=== PATIENT | female | born 1945 | race Caucasian/White ===

== ENCOUNTER 2018-03-08 16:19 | Inpatient (IN) | payer MEDICARE, MEDICAID ==
[~2018-03-08] VITALS: Ht 175.3 cm; Wt 40.0 kg
[~2018-03-08 16:19] MED LIST: ALEN5TAB PO; AREDS-2; ASPI1TAB57 PO; CALC600T10 PO; IPRAAER INH; LISI20TA PO; METO25TA3 PO; MULT1TAB84 PO; POTA10CA PO; PRAV40TA2 PO; REME15TA PO
[2018-03-08 16:24] VITALS: BP 143/76; PULSE 89; RESP 20; TEMP 97.4; O2SAT 96
[2018-03-08] MEDS ORDERED: SODIUM CHLOR 0.9% 1000 ML INJ 1,000 ML IV ONE ×2 (16:39→18:15)
[2018-03-08 16:43] VITALS: BP 143/76; PULSE 82; RESP 15; O2SAT 96
[2018-03-08] MEDS ORDERED: SODIUM CHLORIDE 0.9% FLUSH 10 ML FLUSH IVF PRN (16:45)
--- NOTE | 2018-03-08 17:00 | RADRPT ---
EXAM DATE: 03/08/2018 4:52 PM EDT AGE/SEX: 72 years / Female INDICATIONS: Weakness and fall today. CLINICAL DATA: This is the patient's initial encounter. Patient reports that signs and symptoms have been present for 1 day and indicates a pain score of 0/10. MEDICAL/SURGICAL HISTORY: Chronic obstructive pulmonary disease. Hypertension. Pacemaker. COMPARISON: [facility] – [place], CHEST SINGLE AP, 06/18/2016. . FINDINGS: A single AP view of the chest demonstrates the lungs to be symmetrically hyperaerated without evidenc e of mass, infiltrate or effusion. No evidence of pneumothorax. The cardiomediastinal contours are u nremarkable. Healed fractures of the posterior lateral right fifth through seventh ribs, stable from prior.. Bipolar cardiac pacer leads intact. CONCLUSION: Hyperaerated lungs. No infiltrates seen. Electronically signed by: Wilman Bravo MD 03/08/2018 4:58 PM EDT
--- NOTE | 2018-03-08 17:28 | PD ---
HPI Chief Complaint: Fall Time Seen by Provider: 16:39 Travel History International Travel<30 days: No Contact w/Intl Traveler<30days: No Traveled to known affect area: No History of Present Illness HPI 72-year-old female patient with history of COPD, smoking, presents to the ER today because she has been slowly losing weight over the last few months, has lost about 33 pounds, and she does have poor appetite, and today was feeling dizzy, had fallen yesterday because she just feels so weak. She has a left eyelid ecchymosis from the fall. She has abrasions on her left shoulder. She denies any vomiting, diarrhea, or other symptoms. She also complains of back pains which have been going on for several weeks. Modifying Factors: None Associated Signs & Symptoms: Weight loss, decreased p.o. intake, anorexia, general weakness, falls Risk Factors: Elderly PFSH Past Medical History Autoimmune Disease: No Anxiety: Yes Depression: Yes Cancer: No COPD: Yes Endocrine: No Genitourinary: No Hypertension: Yes Musculoskeletal: Yes Neurologic: No Reproductive: No ?: Not Tubal Ligation: Yes Past Surgical History Surgical History: No Previous Surgery Eye Surgery: Yes (CATARACT) Pacemaker: Yes Social History Alcohol Use: Yes (scotch daily, 1-2 glasses) Tobacco Use: Yes (1ppd) Substance Use: No Allergies-Medications (Allergen,Severity, Reaction): Coded Allergies: No Known Allergies (Verified Adverse Reaction, Unknown, 03/08/18) Reported Meds & Prescriptions Reported Meds & Active Scripts Active Potassium Chloride ER (Potassium Chloride) 10 Meq Cap 20 Meq PO DAILY Alendronate (Alendronate Sodium) 5 Mg Tab 5 Mg PO DAILY Lisinopril-Hctz 20-12.5 Mg Tab 1 Tab PO DAILY Metoprolol Tartrate 25 Mg Tab 25 Mg PO BID Remeron (Mirtazapine) 15 Mg Tab 15 Mg PO HS Pravastatin 40 Mg Tab 40 Mg PO DAILY Combivent Respimat Inh (Ipratropium-Albuterol Inh) 20-100 Snf/Act Aero 1 Puff INH QID Aspirin 81 (Aspirin) 81 Mg Tabdr 81 Mg PO DAILY Multivitamin Adults (Multiple Vitamins W/ Minerals) 1 Tab 1 Tab PO DAILY Calcium + D3 (Calcium Carbonate-Cholecalciferol) 600-200 Mg-Unit Tab 1 Tab PO BID Reported [Areds-2] Review of Systems Except as stated in HPI: all other systems reviewed are Neg Physical Exam Narrative GENERAL: Cachectic appearing elderly white female patient currently in moderate distress. Awake and oriented 3. SKIN: Focused skin assessment warm/dry. HEAD: Atraumatic. Normocephalic. EYES: Pupils equal and round. No scleral icterus. No injection or drainage. ENT: No nasal bleeding or discharge. Mucous membranes pink and moist. NECK: Trachea midline. No JVD. Supple. CARDIOVASCULAR: Regular rate and rhythm. No murmur appreciated. RESPIRATORY: No accessory muscle use. Clear to auscultation. Breath sounds equal bilaterally. GASTROINTESTINAL: Abdomen scaphoid, non-tender, nondistended. Hepatic and splenic margins not palpable. BACK: No CVA tenderness. No rash. No point tenderness on palpation of the spine. MUSCULOSKELETAL: No obvious deformities. No clubbing. No cyanosis. No edema. Abrasion to the left anterior shoulder. With no obvious bony deformities, nontender with range of motion or palpation. NEUROLOGICAL: Awake and alert. No obvious cranial nerve deficits. Motor grossly within normal limits. Normal speech. PSYCHIATRIC: Appropriate mood and affect; insight and judgment normal. Data Data Last Documented VS Vital Signs Date Time Temp Pulse Resp B/P (MAP) Pulse Ox O2 Delivery O2 Flow Rate FiO2 03/08/18 16:43 82 15 143/76 (98) 96 Room Air 03/08/18 16:24 97.4 Orders Orders Electrocardiogram (03/08/18 16:39) Complete Blood Count With Diff (03/08/18 16:39) Comprehensive Metabolic Panel (03/08/18 16:39) Magnesium (Mg) (03/08/18 16:39) Ckmb (Isoenzyme) Profile (03/08/18 16:39) Troponin I (03/08/18 16:39) Act Partial Throm Time (Ptt) (03/08/18 16:39) Prothrombin Time / Inr (Pt) (03/08/18 16:39) Urinalysis - C+S If Indicated (03/08/18 16:39) Chest, Single Ap (03/08/18 16:39) Ct Brain W/O Iv Contrast(Rout) (03/08/18 16:39) Ecg Monitoring (03/08/18 16:39) Iv Access Insert/Monitor (03/08/18 16:39) Oximetry (03/08/18 16:39) Sodium Chloride 0.9% Flush (Ns Flush) (03/08/18 16:45) Sodium Chlor 0.9% 1000 Ml Inj (Ns 1000 M (03/08/18 16:39) Ct Abd/Pel W/O Iv Contrast (03/08/18 16:39) CKMB (03/08/18 16:30) CKMB% (03/08/18 16:30) Sodium Chlor 0.9% 1000 Ml Inj (Ns 1000 M (03/08/18 18:15) Labs Laboratory Tests Test 03/08/18 16:30 White Blood Count 8.3 TH/MM3 Red Blood Count 5.70 MIL/MM3 Hemoglobin 16.9 GM/DL Hematocrit 50.0 % Mean Corpuscular Volume 87.7 FL Mean Corpuscular Hemoglobin 29.6 PG Mean Corpuscular Hemoglobin Concent 33.8 % Red Cell Distribution Width 13.8 % Platelet Count 147 TH/MM3 Mean Platelet Volume 9.5 FL Neutrophils (%) (Auto) 77.7 % Lymphocytes (%) (Auto) 13.6 % Monocytes (%) (Auto) 7.7 % Eosinophils (%) (Auto) 0.6 % Basophils (%) (Auto) 0.4 % Neutrophils # (Auto) 6.4 TH/MM3 Lymphocytes # (Auto) 1.1 TH/MM3 Monocytes # (Auto) 0.6 TH/MM3 Eosinophils # (Auto) 0.1 TH/MM3 Basophils # (Auto) 0.0 TH/MM3 CBC Comment DIFF FINAL Differential Comment Prothrombin Time 10.9 SEC Prothromb Time International Ratio 1.1 RATIO Activated Partial Thromboplast Time 21.5 SEC Blood Urea Nitrogen 56 MG/DL Creatinine 1.39 MG/DL Random Glucose 130 MG/DL Total Protein 7.7 GM/DL Albumin 4.1 GM/DL Calcium Level 15.9 MG/DL Magnesium Level 1.6 MG/DL Alkaline Phosphatase 63 U/L Aspartate Amino Transf (AST/SGOT) 64 U/L Alanine Aminotransferase (ALT/SGPT) 25 U/L Total Bilirubin 0.5 MG/DL Sodium Level 134 MEQ/L Potassium Level 3.3 MEQ/L Chloride Level 93 MEQ/L Carbon Dioxide Level 32.6 MEQ/L Anion Gap 8 MEQ/L Estimat Glomerular Filtration Rate 37 ML/MIN Protein Corrected Calcium 15.4 MG/DL Total Creatine Kinase 172 U/L Troponin I 0.16 NG/ML [facility] Medical Decision Making Medical Screen Exam Complete: Yes Emergency Medical Condition: Yes Medical Record Reviewed: Yes Interpretation(s) EKG shows paced rhythm at a rate of 87 bpm. Laboratory Tests Test 03/08/18 16:30 Red Blood Count 5.70 MIL/MM3 (4.00-5.30) Hemoglobin 16.9 GM/DL (11.6-15.3) Hematocrit 50.0 % (35.0-46.0) Platelet Count 147 TH/MM3 (150-450) Neutrophils (%) (Auto) 77.7 % (16.0-70.0) Activated Partial Thromboplast Time 21.5 SEC (24.3-30.1) Blood Urea Nitrogen 56 MG/DL (7-18) Creatinine 1.39 MG/DL (0.50-1.00) Random Glucose 130 MG/DL (74-106) Calcium Level 15.9 MG/DL (8.5-10.1) Aspartate Amino Transf (AST/SGOT) 64 U/L (15-37) Sodium Level 134 MEQ/L (136-145) Potassium Level 3.3 MEQ/L (3.5-5.1) Chloride Level 93 MEQ/L (98-107) Carbon Dioxide Level 32.6 MEQ/L (21.0-32.0) Estimat Glomerular Filtration Rate 37 ML/MIN (>89) Protein Corrected Calcium 15.4 MG/DL (8.5-10.1) Creatine Kinase MB 5.3 NG/ML (0.5-3.6) Troponin I 0.16 NG/ML (0.02-0.05) Last [address] 03/08/181638 Signed Impressions: CONCLUSION: 1. Moderate severity ischemic change in the supratentorial brain, unchanged fr om 2016. 2. No acute findings. Chest X-Ray 03/08/181638 Signed Impressions: CONCLUSION: Hyperaerated lungs. No infiltrates seen. Abdomen/Pelvis CT 03/08/181638 Signed Impressions: CONCLUSION: 1. Stable abdominal aortic aneurysm. Stable colonic diverticulosis and gallsto carmen. 2. 2 mm nonobstructing stone in the extrarenal pelvis on the right side. Other zarco, no acute findings.. Differential Diagnosis Dehydration versus electrolyte abnormalities versus intracranial injuries Narrative Course Lab work shows hypercalcemia and severe elevation of BUN and creatinine concerning for dehydration and acute kidney injury. IV fluids have been given in the ER. CAT scan of the brain did not show any signs of intracranial injuries. CT of the abdomen did not show signs of acute intra-abdominal processes. At this point, my plan would be to admit her for further evaluation. Patient also has mildly elevated troponin, will need troponins followed, but this is likely secondary to dehydration and kidney failure rather than cardiac processes. Case has been discussed with Dr. Pike for admission. Diagnosis Primary Impression: Hypercalcemia Additional Impressions: Severe dehydration Acute kidney failure Admitting Information Admitting Physician Requests: Admit Jordan Hyatt MD Mar 08, 2018 17:28
[2018-03-08 17:31] LABS: AUTOMATED NEUTROPHIL # 6.4 TH/MM3 (1.8-7.7); BASOPHIL % 0.4 % (0.0-2.0); EOSINOPHIL # 0.1 TH/MM3 (0-0.4); EOSINOPHIL % 0.6 % (0.0-4.0); HEMOGLOBIN 16.9 GM/DL (11.6-15.3); LYMPH % 13.6 % (9.0-44.0); LYMPHOCYTE # 1.1 TH/MM3 (1.0-4.8); MEAN CELL VOLUME 87.7 FL (80.0-100.0); MEAN CORPUSCULAR HEMOGLOBIN 29.6 PG (27.0-34.0); MEAN CORPUSCULAR HGB CONC 33.8 % (32.0-36.0); MEAN PLATELET VOLUME 9.5 FL (7.0-11.0); MONO % 7.7 % (0.0-8.0); MONOCYTE # 0.6 TH/MM3 (0-0.9); NEUT % 77.7 % (16.0-70.0); PLATELET COUNT 147 TH/MM3 (150-450); RED CELL DISTRIBUTION WIDTH 13.8 % (11.6-17.2); WHITE BLOOD COUNT 8.3 TH/MM3 (4.0-11.0)
--- NOTE | 2018-03-08 17:43 | RADRPT ---
EXAM DATE: 03/08/2018 5:40 PM EDT AGE/SEX: 72 years / Female INDICATIONS: Dizziness and generalized weakness X 2 weeks. CLINICAL DATA: This is the patient's initial encounter. Patient reports that signs and symptoms have been present for 2 weeks and indicates a pain score of 0/10. MEDICAL/SURGICAL HISTORY: Hypertension. Tubal ligation. RADIATION DOSE: 56.35 CTDI (mGy) [place] [facility] [place]13[place]. . TECHNIQUE: CT of the head without contrast. Using automated exposure control and adjustment of the mA and/or kV according to patient size, radiation dose was kept as low as reasonably achievable to ob tain optimal diagnostic quality images. FINDINGS: The head is canted in the gantry creating asymmetries. Cerebrum: The ventricles, sulci, and basal cisterns are prominent. There is also diffuse decreased a ttenuation in the supratentorial white matter characteristic of diffuse ischemic change. The findings are similar in severity and appearance compared to prior examination in 2016. Physiologic calcificat ion in the right basal ganglia.. No evidence of midline shift, mass lesion, hemorrhage or acute infa rction. No extraaxial fluid collections are seen. Posterior Fossa: The cerebellum and brainstem are intact. The 4th ventricle is midline. The cerebe llopontine angle is unremarkable. Extracranial: The visualized portion of the orbits is intact. Skull: The calvaria is intact. No evidence of skull fracture. CONCLUSION: 1. Moderate severity ischemic change in the supratentorial brain, unchanged from 2016. 2. No acute findings. Electronically signed by: Wilman Bravo MD 03/08/2018 5:42 PM EDT
[2018-03-08 17:48] LABS: INTERNATIONAL NORMALIZED RATIO 1.1 RATIO; PROTHROMBIN TIME - PATIENT 10.9 SEC (9.8-11.6)
--- NOTE | 2018-03-08 17:55 | RADRPT ---
EXAM DATE: 03/08/2018 5:42 PM EDT AGE/SEX: 72 years / Female INDICATIONS: Generalized weakness and loss of appetite. CLINICAL DATA: This is the patient's initial encounter. Patient reports that signs and symptoms have been present for 2 weeks and indicates a pain score of 0/10. MEDICAL/SURGICAL HISTORY: Hypertension. Tubal ligation. RADIATION DOSE: 6.91 CTDI (mGy) COMPARISON: [facility] [place] & [place]EL[place] W/O CONTRAST, 06/17/2016. . TECHNIQUE: Multiple contiguous axial images were obtained through the abdomen. Images were obtained using multiple row detector helical technique. Using dose reduction techniques, radiation dose was ke pt as low as reasonably achievable to obtain optimal diagnostic quality images. FINDINGS: Lower Lungs: The visualized lower lungs are clear. Liver: The liver has a homogeneous density without space-occupying lesion. There is no dilation of th e biliary tree. Multiple calcified stones layering in the dependent gallbladder similar to prior. Spleen: Homogeneous density without enlargement. Pancreas: Unremarkable without mass or calcification. Kidneys: Normal in size and shape. No evidence of mass or hydronephrosis. There is a new 2 mm nonobs tructing calcified stone in the extrarenal pelvis on the right side. Adrenal Glands: Unremarkable. Aorta: Fusiform aneurysm of the midabdominal aorta is stable in size at 4.0 cm in width and 4.4 cm in AP dimension. Diffuse wall calcification are present throughout the aorta and iliac vessels. Bowel/Mesentery: No dilated loops of small or large bowel. Scattered diverticula throughout the colo n, similar to prior. Abdominal Wall: Intact. Retroperitoneum: No evidence of adenopathy in the retrocrural, para-aortic, or deep pelvic regions. Bladder: Contours are smooth. Reproductive Organs: No abnormal masses or calcifications seen. Inguinal: The inguinal region is unremarkable without evidence of adenopathy. Bony Structures: Unremarkable. CONCLUSION: 1. Stable abdominal aortic aneurysm. Stable colonic diverticulosis and gallstones. 2. 2 mm nonobstructing stone in the extrarenal pelvis on the right side. Otherwise, no acute finding s.. Electronically signed by: Wilman Bravo MD 03/08/2018 5:54 PM EDT
[2018-03-08 18:09] LABS: ALBUMIN 4.1 GM/DL (3.4-5.0); ALKALINE PHOSPHATASE 63 U/L (45-117); ALT (GPT) 25 U/L (10-53); AST (GOT) 64 U/L (15-37); BICARBONATE 32.6 MEQ/L (21.0-32.0); BLOOD UREA NITROGEN 56 MG/DL (7-18); CALCIUM 15.9 MG/DL (8.5-10.1); CHLORIDE 93 MEQ/L (98-107); CREATININE 1.39 MG/DL (0.50-1.00); GLOMERULAR FILTRATION RATE 37 ML/MIN (>89); GLUCOSE,RANDOM 130 MG/DL (74-106); MAGNESIUM 1.6 MG/DL (1.5-2.5); SODIUM (NA) 134 MEQ/L (136-145); TOTAL BILIRUBIN ADULT 0.5 MG/DL (0.2-1.0); TOTAL PROTEIN 7.7 GM/DL (6.4-8.2); TROPONIN I 0.16 NG/ML (0.02-0.05)
[2018-03-08 18:15] LABS: CALCIUM-PROTEIN CORRECTED 15.4 MG/DL (8.5-10.1)
[2018-03-08 18:42] VITALS: O2SAT 97
[2018-03-08] MEDS ORDERED: SENNOSIDES 8.6 MG TAB PO PRN (18:45)
[2018-03-08] MEDS ORDERED: LACTULOSE SYRUP 20 GM/30 ML CUP PO PRN (18:45)
[2018-03-08] MEDS ORDERED: LORazepam 2 MG TAB PO PRN (18:45)
[2018-03-08] MEDS ORDERED: MAGNESIUM HYDROXIDE SUSP 30 ML CUP PO PRN (18:45)
[2018-03-08] MEDS ORDERED: ONDANSETRON ODT 4 MG TAB PO PRN (18:45)
[2018-03-08] MEDS ORDERED: NALOXONE HCL 0.4 MG/ML AMP IV PUSH PRN (18:45)
[2018-03-08] MEDS ORDERED: LORazepam 1 MG TAB PO PRN (18:45)
[2018-03-08] MEDS ORDERED: BISACODYL 10 MG SUPP RECTAL PRN (18:45)
[2018-03-08] MEDS ORDERED: ACETAMINOPHEN 325 MG TAB PO PRN (18:45)
[2018-03-08] MEDS ORDERED: FLUMAZENIL 0.5 MG/5 ML VIAL IV PUSH PRN (18:45)
[2018-03-08] MEDS ORDERED: LORazepam 2 MG/ML VIAL IV PUSH PRN ×4 (18:45)
[2018-03-08] MEDS ORDERED: RESP: ALBUTEROL 2.5 MG/IPRATROPIUM 0.5 MG NEB (PRN) NEB (19:00)
[2018-03-08] MEDS ORDERED: cloNIDine HCL 0.1 MG TAB PO PRN (19:00)
[2018-03-08 19:05] VITALS: BP 164/71; PULSE 78; RESP 18; O2SAT 97
[2018-03-08] MEDS ORDERED: NON-FORMULARY DRUG (Ipratropium-Albuterol Inh (Combivent Respimat Inh) 1 PUFF) INH SCH (21:00)
[2018-03-08] MEDS: NS + KCL 20 MEQ INJ 1,000 ML IV SCH (21:17)
[2018-03-08 21:34] VITALS: PULSE 82
[2018-03-08] MEDS: DOCUSATE SODIUM 50 MG/SENNA 8.6 MG TAB PO SCH (21:35)
[2018-03-08] MEDS: METOPROLOL TARTRATE 25 MG TAB PO SCH (21:36)
[2018-03-08] MEDS: HEPARIN SODIUM - SQ 10,000 UNITS/ML VIAL SQ SCH (21:36)
[2018-03-08] MEDS: ALBUTEROL SULFATE 90 MCG/ACT HFA 8 GM INHALER INH SCH (21:39)
[2018-03-08 21:40] VITALS: BP 162/72; PULSE 84; RESP 17; TEMP 98; O2SAT 97
[2018-03-08] MEDS ORDERED: CALCITONIN SALMON INJ 400 UNITS/2 ML VIAL SQ ONE (22:00)
[2018-03-08] MEDS ORDERED: ACETAMINOPHEN/HYDROcodone 325 MG/5 MG TAB PO PRN (22:15)
[2018-03-08] MEDS ORDERED: ACETAMINOPHEN 500 MG CPLT PO PRN (22:15)
--- NOTE | 2018-03-08 22:58 | HHI.HP ---
[facility] Marcel Smith MD Admission Diagnosis Severe dehydration/hypercalcemia/syncope Diagnoses: Chief Complaint: "I fell" Travel History International Travel<30 Days: No Contact w/Intl Traveler <30 Da: No Traveled to Known Affected Are: No History of Present Illness This is a 72-year-old female patient with past medical history which includes COPD not on oxygen nebulizers or inhalers, chronic tobacco use, anxiety/ depression and hypertension. Patient presented to the emergency department today after a fall. Patient reports she was walking her hallway and tripped and fell over her rug. Patient does have ecchymosis on her left eye and reports left shoulder pain. Patient also endorses poor appetite over the past 1 -2 years and weight loss. Patient reports she has lost approximately 90 pounds over the past 2 years and lost approximately 33 pounds over the past 3 months. Patient reports she just has a poor appetite and does not want to eat much. Patient does report she has approximately 2 glasses of bourbon and coke per day and smokes 1-2 packs of cigarettes per day patient denies nausea vomiting diarrhea constipation fevers chills cough congestion chest pain or shortness of breath. Review of Systems Except as stated in HPI: all other systems reviewed are Neg Past Family Social History Past Medical History COPD not on oxygen nebulizers or inhalers, chronic tobacco use, anxiety/ depression and hypertension Past Surgical History Bilateral cataract surgery, pacemaker placement, tubal ligation Reported Medications Potassium Chloride ER (Potassium Chloride) 10 Meq Cap 20 Meq PO DAILY Alendronate (Alendronate Sodium) 5 Mg Tab 5 Mg PO DAILY Lisinopril-Hctz 20-12.5 Mg Tab 1 Tab PO DAILY Metoprolol Tartrate 25 Mg Tab 25 Mg PO BID Remeron (Mirtazapine) 15 Mg Tab 15 Mg PO HS Pravastatin 40 Mg Tab 40 Mg PO DAILY Combivent Respimat Inh (Ipratropium-Albuterol Inh) 20-100 Skilled Nursing/Act Aero 1 Puff INH QID Aspirin 81 (Aspirin) 81 Mg Tabdr 81 Mg PO DAILY Multivitamin Adults (Multiple Vitamins W/ Minerals) 1 Tab 1 Tab PO DAILY Calcium + D3 (Calcium Carbonate-Cholecalciferol) 600-200 Mg-Unit Tab 1 Tab PO BID Allergies: Coded Allergies: No Known Allergies (Verified Allergy, Unknown, 03/08/18) Active Ordered Medications Current Medications Medications (Trade) Dose Ordered Sig/Adrianne Route Start Time Stop Time Status Last Admin (NS Flush) 2 ml UNSCH PRN IVF 03/08/18 16:45 (Tylenol) 650 mg Q4H PRN PO 03/08/18 18:45 (Zofran Odt) 4 mg Q6H PRN PO 03/08/18 18:45 (Heparin Inj) 5,000 units Q12H SQ 03/08/18 20:00 03/08/18 21:36 (Narcan Inj) 0.4 mg UNSCH PRN IV PUSH 03/08/18 18:45 (Karen-Colace) 1 tab BID PO 03/08/18 21:00 03/08/18 21:35 (Milk Of Magnesia Liq) 30 ml Q12H PRN PO 03/08/18 18:45 (Senokot) 17.2 mg Q12H PRN PO 03/08/18 18:45 (Dulcolax Supp) 10 mg DAILY PRN RECTAL 03/08/18 18:45 (Lactulose Liq) 30 ml DAILY PRN PO 03/08/18 18:45 (Romazicon Inj) 0.2 mg Q1M PRN IV PUSH 03/08/18 18:45 (Ativan) 1 mg Q4H PRN PO 03/08/18 18:45 (Ativan Inj) 1 mg Q4H PRN IV PUSH 03/08/18 18:45 (Ativan) 2 mg Q2H PRN PO 03/08/18 18:45 (Ativan Inj) 2 mg Q2H PRN IV PUSH 03/08/18 18:45 (Ativan Inj) 2 mg Q1H PRN IV PUSH 03/08/18 18:45 (Ativan Inj) 2 mg Q15M PRN IV PUSH 03/08/18 18:45 Potassium Chloride/Sodium Chloride 1,000 ml @ 125 mls/hr Q8H IV 03/08/18 20:00 03/08/18 21:17 (Duoneb Neb) 1 ampule Q4HR NEB PRN NEB 03/08/18 19:00 (Catapres) 0.1 mg Q6H PRN PO 03/08/18 19:00 (Ecotrin Ec) 81 mg DAILY PO 03/09/18 09:00 (Lopressor) 25 mg BID PO 03/08/18 21:00 03/08/18 21:36 (Pravachol) 40 mg DAILY PO 03/09/18 09:00 (Proair Hfa Inh) 2 puff QID INH 03/08/18 21:00 03/08/18 21:39 (Spiriva Inh) 18 mcg DAILY INH 03/09/18 09:00 ([place] 5-325 Mg) 1 tab Q6H PRN PO 03/08/18 22:15 (Tylenol) 500 mg Q6H PRN PO 03/08/18 22:15 Family History Reviewed patient denies pertinent family history Social History Patient lives at home with a roommate Reports drinking approximately 2 alcoholic beverages per day bourbon and Coke Smokes 1-2 packs cigarettes per day Denies illicit drug use Physical Exam Vital Signs Vital Signs Date Time Temp Pulse Resp B/P (MAP) Pulse Ox O2 Delivery O2 Flow Rate FiO2 03/08/18 19:06 03/08/18 19:05 78 18 164/71 (102) 97 Room Air 03/08/18 18:42 97 21 03/08/18 16:43 82 15 143/76 (98) 96 Room Air 03/08/18 16:43 96 Room Air 03/08/18 16:38 87 18 97 Room Air 03/08/18 16:24 97.4 89 20 143/76 (98) 96 Physical Exam GENERAL: This cachectic appearing 72-year-old female, in no apparent distress. SKIN: Abrasion left shoulder ecchymosis left periorbital area HEAD: Left periorbital ecchymosis EYES: Extraocular motions intact. No scleral icterus. No injection or drainage. CARDIOVASCULAR: Regular rate and rhythm RESPIRATORY: Clear to auscultation. Breath sounds equal bilaterally. GASTROINTESTINAL: Abdomen soft, non-tender, nondistended. MUSCULOSKELETAL: Extremities without clubbing, cyanosis, or edema. No joint tenderness, effusion, or edema noted. No calf tenderness. Negative Homans sign bilaterally. NEUROLOGICAL: Awake and alert. No focal deficits appreciated. Motor and sensory grossly within normal limits. 4-5 out of 5 muscle strength in all muscle groups. Normal speech. Laboratory Laboratory Tests Test 03/08/18 16:30 White Blood Count 8.3 Red Blood Count 5.70 Hemoglobin 16.9 Hematocrit 50.0 Mean Corpuscular Volume 87.7 Mean Corpuscular Hemoglobin 29.6 Mean Corpuscular Hemoglobin Concent 33.8 Red Cell Distribution Width 13.8 Platelet Count 147 Mean Platelet Volume 9.5 Neutrophils (%) (Auto) 77.7 Lymphocytes (%) (Auto) 13.6 Monocytes (%) (Auto) 7.7 Eosinophils (%) (Auto) 0.6 Basophils (%) (Auto) 0.4 Neutrophils # (Auto) 6.4 Lymphocytes # (Auto) 1.1 Monocytes # (Auto) 0.6 Eosinophils # (Auto) 0.1 Basophils # (Auto) 0.0 CBC Comment DIFF FINAL Differential Comment Prothrombin Time 10.9 Prothromb Time International Ratio 1.1 Activated Partial Thromboplast Time 21.5 Blood Urea Nitrogen 56 Creatinine 1.39 Random Glucose 130 Total Protein 7.7 Albumin 4.1 Calcium Level 15.9 Magnesium Level 1.6 Alkaline Phosphatase 63 Aspartate Amino Transf (AST/SGOT) 64 Alanine Aminotransferase (ALT/SGPT) 25 Total Bilirubin 0.5 Sodium Level 134 Potassium Level 3.3 Chloride Level 93 Carbon Dioxide Level 32.6 Anion Gap 8 Estimat Glomerular Filtration Rate 37 Protein Corrected Calcium 15.4 Total Creatine Kinase 172 Creatine Kinase MB 5.3 Troponin I 0.16 Result Diagram: 03/08/18 1630 03/08/18 163 Imaging Last Impressions Head CT 03/08/181638 Signed Impressions: CONCLUSION: 1. Moderate severity ischemic change in the supratentorial brain, unchanged fr om 2015. 2. No acute findings. Chest X-Ray 03/08/181638 Signed Impressions: CONCLUSION: Hyperaerated lungs. No infiltrates seen. Abdomen/Pelvis CT 03/08/181638 Signed Impressions: CONCLUSION: 1. Stable abdominal aortic aneurysm. Stable colonic diverticulosis and gallsto carmen. 2. 2 mm nonobstructing stone in the extrarenal pelvis on the right side. Other zarco, no acute findings.. Caprini VTE Risk Assessment Caprini VTE Risk Assessment: No/Low Risk (score <= 1) Caprini Risk Assessment Model Point Value = 1 Point Value = 2 Point Value = 3 Point Value = 5 Age 41-60 Minor surgery BMI > 25 kg/m2 Swollen legs Varicose veins or History of unexplained or recurrent spontaneous Oral contraceptives or hormone replacement Sepsis (< 1 month) Serious lung disease, including pneumonia (< 1 month) Abnormal pulmonary function Acute myocardial infarction Congestive heart failure (< 1 month) History of inflammatory bowel disease Medical patient at bed rest Age 61-74 Arthroscopic surgery Major open surgery (> 45 min) Laparoscopic surgery (> 45 min) Malignancy Confined to bed (> 72 hours) Immobilizing plaster cast Central venous access Age >= 75 History of VTE Family history of VTE Factor V Leiden Prothrombin [id number] Lupus anticoagulant Anticardiolipin antibodies Elevated serum homocysteine Heparin-induced thrombocytopenia Other congenital or acquired thrombophilia Stroke (< 1 month) Elective arthroplasty Hip, pelvis, or leg fracture Acute spinal cord injury (< 1 month) Prophylaxis Regimen Total Risk Factor Score Risk Level Prophylaxis Regimen 0-1 Low Early ambulation 2 Moderate Order ONE of the following: *Sequential Compression Device (SCD) *Heparin 5000 units SQ BID 3-4 Higher Order ONE of the following medications: *Heparin 5000 units SQ TID *Enoxaparin/Lovenox 40 mg SQ daily (WT < 150 kg, CrCl > 30 mL/min) *Enoxaparin/Lovenox 30 mg SQ daily (WT < 150 kg, CrCl > 10-29 mL/min) *Enoxaparin/Lovenox 30 mg SQ BID (WT < 150 kg, CrCl > 30 mL/min) AND/OR *Sequential Compression Device (SCD) 5 or more Highest Order ONE of the following medications: *Heparin 5000 units SQ TID (Preferred with Epidurals) *Enoxaparin/Lovenox 40 mg SQ daily (WT < 150 kg, CrCl > 30 mL/min) *Enoxaparin/Lovenox 30 mg SQ daily (WT < 150 kg, CrCl > 10-29 mL/min) *Enoxaparin/Lovenox 30 mg SQ BID (WT < 150 kg, CrCl > 30 mL/min) AND *Sequential Compression Device (SCD) Assessment and Plan Problem List: (1) Hypercalcemia ICD Code: E83.52 - Hypercalcemia Status: Acute Plan: Corrected calcium 15.4 IV fluids IV Calcitonin Recheck calcium 0200 (2) Acute kidney failure ICD Code: N17.9 - Acute kidney failure, unspecified Status: Acute Plan: Likely secondary to dehydration and poor p.o. intake BUN 56 creatinine 1.39, estimated GFR 39 IV fluids recheck BMP in a.m. (3) Elevated troponin ICD Code: R74.8 - Abnormal levels of other serum enzymes Plan: Troponin on admission 0.16 patient denies chest pain Will trend serial troponin and serial EKG (4) HTN (hypertension) ICD Code: I10 - Hypertension Status: Acute Plan: Continue patient's home metoprolol 25 mg twice daily Hold lisinopril hydrochlorothiazide Monitor blood pressure trend (5) Hypokalemia ICD Code: E87.6 - Hypokalemia Status: Acute Plan: 20 MEQ KCl PO IV fluids with potassium Recheck BMP in a.m. (6) Unsteady gait ICD Code: R26.81 - Unsteadiness on feet Status: Acute Plan: Patient fell complaining of left shoulder pain X-ray left shoulder requested PT requested (7) ETOH abuse ICD Code: F10.10 - Alcohol abuse, uncomplicated Plan: [place] protocol monitor for withdrawal, may need addition of Librium Assessment and Plan Discussed case with Dr. Velasco Physician Certification 2 Midnight Certification Type: Admission for Inpatient Services Order for Inpatient Services The services are ordered in accordance with Medicare regulations or non- Medicare payer requirements, as applicable. In the case of services not specified as inpatient-only, they are appropriately provided as inpatient services in accordance with the 2-midnight benchmark. Estimated LOS (days): 3 days is the estimated time the patient will need to remain in the hospital, assuming treatment plan goals are met and no additional complications. Post-Hospital Plan: Not yet determined Denise Hayes Mar 08, 2018 22:58
[2018-03-08] MEDS ORDERED: POTASSIUM CHLORIDE 20 MEQ CONTROLLED RELEASE TAB PO ONE (23:00)
--- NOTE | 2018-03-08 23:04 | RADRPT ---
EXAM DATE: 03/08/2018 10:55 PM EDT AGE/SEX: 72 years / Female INDICATIONS: Pain after fall. CLINICAL DATA: This is the patient's initial encounter. Patient reports that signs and symptoms have been present for 1 day and indicates a pain score of 5/10. MEDICAL/SURGICAL HISTORY: . Chronic obstructive pulmonary disease. Hypertension. . Pacemaker COMPARISON: No prior exams available for comparison. FINDINGS: Bony structures are intact and in normal alignment. Joints are intact without dislocation or signifi cant arthropathy. Osseous density is normal. Soft tissues are unremarkable. No radiopaque foreign bodies seen. Left subclavian bipolar pacer. Calcification anterior to the coracoid process could be a loose body CONCLUSION: No acute fracture seen. Pacemaker in good position. Electronically signed by: Obed Mascorro MD 03/08/2018 11:02 PM EDT
[2018-03-09] VITALS (8 sets, daily range): BP systolic 120–151; BP diastolic 62–80; PULSE 60–89; RESP 18–22; TEMP 97–98.6; O2SAT 94–99
[2018-03-09 00:42] LABS: TROPONIN I 0.23 NG/ML (0.02-0.05)
[2018-03-09 00:45] LABS: CALCIUM 14.7 MG/DL (8.5-10.1)
[2018-03-09 04:38] LABS: AUTOMATED NEUTROPHIL # 6.9 TH/MM3 (1.8-7.7); BASOPHIL % 0.6 % (0.0-2.0); EOSINOPHIL # 0.1 TH/MM3 (0-0.4); EOSINOPHIL % 0.7 % (0.0-4.0); HEMATOCRIT 43.9 % (35.0-46.0); HEMOGLOBIN 14.6 GM/DL (11.6-15.3); LYMPH % 14.2 % (9.0-44.0); LYMPHOCYTE # 1.3 TH/MM3 (1.0-4.8); MEAN CELL VOLUME 86.9 FL (80.0-100.0); MEAN CORPUSCULAR HEMOGLOBIN 28.9 PG (27.0-34.0); MEAN CORPUSCULAR HGB CONC 33.2 % (32.0-36.0); MEAN PLATELET VOLUME 9.3 FL (7.0-11.0); MONO % 7.1 % (0.0-8.0); MONOCYTE # 0.6 TH/MM3 (0-0.9); NEUT % 77.4 % (16.0-70.0); PLATELET COUNT 130 TH/MM3 (150-450); RED BLOOD COUNT 5.06 MIL/MM3 (4.00-5.30); RED CELL DISTRIBUTION WIDTH 13.7 % (11.6-17.2); WHITE BLOOD COUNT 8.9 TH/MM3 (4.0-11.0)
[2018-03-09 05:03] LABS: ALBUMIN 3.4 GM/DL (3.4-5.0); BICARBONATE 26.9 MEQ/L (21.0-32.0); CREATININE 0.79 MG/DL (0.50-1.00)
[2018-03-09] MEDS: NS + KCL 20 MEQ INJ 1,000 ML IV SCH ×3 (05:14→20:56)
[2018-03-09 05:15] LABS: TOTAL BILIRUBIN ADULT 0.5 MG/DL (0.2-1.0); TOTAL PROTEIN 6.3 GM/DL (6.4-8.2); TROPONIN I 0.28 NG/ML (0.02-0.05)
[2018-03-09 05:19] LABS: CALCIUM 13.2 MG/DL (8.5-10.1)
[2018-03-09] MEDS ORDERED: CALCITONIN SALMON INJ 400 UNITS/2 ML VIAL SQ ONE (05:30)
[2018-03-09] MEDS: DOCUSATE SODIUM 50 MG/SENNA 8.6 MG TAB PO SCH ×2 (09:20→20:58)
[2018-03-09] MEDS: ASPIRIN EC 81 MG TABEC PO SCH (09:20)
[2018-03-09] MEDS: METOPROLOL TARTRATE 25 MG TAB PO SCH ×2 (09:20→20:58)
[2018-03-09] MEDS: PRAVASTATIN SOD 40 MG TAB PO SCH (09:20)
[2018-03-09] MEDS: ALBUTEROL SULFATE 90 MCG/ACT HFA 8 GM INHALER INH SCH ×4 (09:21→20:58)
[2018-03-09] MEDS: TIOTROPIUM BROMIDE 18 MCG INH INH SCH (09:21)
[2018-03-09] MEDS: HEPARIN SODIUM - SQ 10,000 UNITS/ML VIAL SQ SCH ×2 (09:21→20:58)
--- NOTE | 2018-03-09 10:02 | HHI.PR ---
Subjective Remarks Follow-up hypercalcemia/dehydration/elevated troponin I/fall March 09, 2018-patient seen and examined, she is alert and oriented 3, denies any left eye pain. Denies any chest pain or shortness of breath. Calcium down to 13.2. Renal indices improved Objective Vitals Vital Signs Date Time Temp Pulse Resp B/P (MAP) Pulse Ox O2 Delivery O2 Flow Rate FiO2 03/09/18 08:00 97.5 85 18 120/72 (88) 94 03/09/18 05:11 21 03/09/18 04:30 98.6 76 22 130/69 (89) 97 03/09/18 04:00 64 03/09/18 00:15 97.0 89 18 149/80 (103) 98 03/09/18 00:00 65 03/08/18 21:40 98.0 84 17 162/72 (102) 97 03/08/18 21:34 82 03/08/18 19:06 03/08/18 19:05 78 18 164/71 (102) 97 Room Air 03/08/18 18:42 97 21 03/08/18 16:43 82 15 143/76 (98) 96 Room Air 03/08/18 16:43 96 Room Air 03/08/18 16:38 87 18 97 Room Air 03/08/18 16:24 97.4 89 20 143/76 (98) 96 I/O 03/08/18 03/08/18 03/08/18 03/09/18 03/09/18 03/09/18 07:00 15:00 23:00 07:00 15:00 23:00 Intake Total 1500 ml 550 ml Balance 1500 ml 550 ml Intake Oral 500 ml 550 ml IV Total 1000 ml # Voids 0 4 # Bowel Movements 0 0 Result Diagram: 03/09/18 0352 03/09/18 0352 Imaging Last Impressions Head CT 03/08/181638 Signed Impressions: CONCLUSION: 1. Moderate severity ischemic change in the supratentorial brain, unchanged fr om 2015. 2. No acute findings. Chest X-Ray 03/08/181638 Signed Impressions: CONCLUSION: Hyperaerated lungs. No infiltrates seen. Abdomen/Pelvis CT 03/08/181638 Signed Impressions: CONCLUSION: 1. Stable abdominal aortic aneurysm. Stable colonic diverticulosis and gallsto carmen. 2. 2 mm nonobstructing stone in the extrarenal pelvis on the right side. Other zarco, no acute findings.. Shoulder X-Ray 03/08/18 0000 Signed Impressions: CONCLUSION: No acute fracture seen. Pacemaker in good position. Objective Remarks GENERAL: NAD SKIN: Warm and dry. HEAD: Normocephalic. EYES: No scleral icterus. No injection or drainage. Raccoon left eye NECK: Supple, trachea midline. No JVD or lymphadenopathy. CARDIOVASCULAR: Regular rate and rhythm without murmurs, gallops, or rubs. RESPIRATORY: Breath sounds equal bilaterally. No accessory muscle use. GASTROINTESTINAL: Abdomen soft, non-tender, nondistended. MUSCULOSKELETAL: No cyanosis, or edema. BACK: Nontender without obvious deformity. No CVA tenderness. A/P Problem List: (1) Hypercalcemia ICD Code: E83.52 - Hypercalcemia Status: Acute (2) Acute kidney failure ICD Code: N17.9 - Acute kidney failure, unspecified Status: Acute (3) Elevated troponin ICD Code: R74.8 - Abnormal levels of other serum enzymes (4) HTN (hypertension) ICD Code: I10 - Hypertension Status: Acute (5) Hypokalemia ICD Code: E87.6 - Hypokalemia Status: Acute (6) Unsteady gait ICD Code: R26.81 - Unsteadiness on feet Status: Acute (7) ETOH abuse ICD Code: F10.10 - Alcohol abuse, uncomplicated Assessment and Plan 72-year-old female with Hypercalcemia Calcium trending down PTH and TSH within normal limits Chest x-ray without any evidence of malignancy Patient has really received calcitonin 100 mg IM 2, will proceed with 2 more doses for total 4 Check vitamin D 25 and vitamin D 1,25 as well as calcium 24 hour urine Continue with telemetry monitoring as well as IV fluid hydration Acute renal injury Resolved Elevated troponin I May be secondary to hypercalcemia However will consult cardiology Check 2D echo COPD No current exacerbation Continue with bronchodilators and maintain oxygen saturation above 88% History of alcohol abuse Continue BRENNON smith protocol Hypertension Currently normotensive DVT prophylaxis: Bilateral SCDs Shaji Joseph MD Mar 09, 2018 10:02
--- NOTE | 2018-03-09 12:30 | MB ---
cc: Kvng Oliveros MD DATE: 03/09/2018 REASON FOR CONSULTATION: Elevated troponin. HISTORY OF PRESENT ILLNESS: The patient is a 72-year-old white female with a history of COPD, possible coronary artery disease, hyperlipidemia, hypertension, pacemaker implant, paroxysmal atrial tachycardia, who presented to the emergency room yesterday evening after sustaining a couple of falls. The patient has had very poor oral intake in the last few months and has lost over 30 pounds. In the last couple days, she has had severe generalized weakness and lightheadedness. The first time she fell, she thinks she may have just simply lost her balance. The patient denies losing consciousness. She also denies chest pain, shortness of breath, palpitations, pedal edema, paroxysmal nocturnal dyspnea. PAST MEDICAL HISTORY: 1. COPD. 2. Possible coronary artery disease with nuclear stress test 2007 showing distal inferior ischemia. 3. Hyperlipidemia. 4. Hypertension. 5. 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 6. Paroxysmal atrial tachycardia demonstrated by pacemaker checks. CARDIAC MEDICATIONS AT HOME: 1. Aspirin 81 mg daily. 2. Furosemide 40 mg daily. 3. Lisinopril/hydrochlorothiazide 20/25 one daily. 4. Metoprolol tartrate 25 mg b.i.d. 5. Potassium chloride 20 mEq daily. 6. Pravastatin 40 mg at bedtime. ALLERGIES: NO KNOWN DRUG ALLERGIES. FAMILY HISTORY: Noncontributory. SOCIAL HISTORY: The patient smokes about a pack of cigarettes per day. She also has 2 scotch drinks a day. REVIEW OF SYSTEMS: As in the history of present illness, otherwise negative or noncontributory. She also denies abdominal pain, melena, diarrhea, bright red blood per rectum. Flu symptoms, fevers. PHYSICAL EXAMINATION: VITAL SIGNS: Her blood pressure 120/72 with a pulse 85, respirations 18. GENERAL: She is a well-developed, very thin white female, in no acute distress. NECK: Jugular venous pressure is normal. Carotid pulses are 2+ bilaterally and without bruits. CHEST: Reveals diminished breath sounds diffusely. CARDIAC: She has a regular rhythm and rate without S3, S4, or murmur. ABDOMEN: She has a soft, nontender abdomen. Bowel sounds are present. There is no definite hepatosplenomegaly. EXTREMITIES: Reveals no clubbing, cyanosis or edema. LABORATORY DATA: EKG shows atrial sensed ventricular paced rhythm. LABORATORY DATA: Includes WBC 8.9, hemoglobin 14.6, platelets 130, potassium 3.5, BUN 43, creatinine 0.79 (56 and 1.39 on admission) CK 241 with 3.5 percent MB fraction. Troponin 0.28. Chest x-ray shows no acute disease. IMPRESSION: Minimally elevated troponin levels in this 72-year-old white female with a history of COPD, mildly abnormal nuclear stress test 10 years ago, hypertension, hyperlipidemia, paroxysmal atrial tachycardia, Biotronik pacemaker implant. Overall, I doubt the slight elevation in troponin levels, particularly in the setting of renal insufficiency, is of any clinical significance. She has had no chest pain symptoms. EKG is nondiagnostic. CK-MB fractions are overall negative as well. She does have sporadic episodes of paroxysmal atrial tachycardia as long as 45 minutes demonstrated by pacemaker checks. RECOMMENDATIONS: 1. Check a 2-D echo to assess her left ventricular function. 2. Continue her usual home cardiac medications. 3. Will have the pacemaker safety representative interrogate her pacemaker to see if she has had any recent atrial tachycardia. MD LUKASZ Shah/KHANG , 12:10 PM , 12:29 PM ANDREW
[2018-03-09 16:27] LABS: HEMOGLOBIN A1C 5.4 % (4.3-6.0)
[2018-03-09] MEDS ORDERED: CALCITONIN SALMON INJ 400 UNITS/2 ML VIAL IM ONE (18:00)
--- NOTE | 2018-03-09 22:59 | EKG ---
Date Performed: 03/09/2018 Time Performed: 04:56:26 PTAGE: 72 years EKG: Ventricular pacing. A sensing Pacemaker rhythm - no further analysis Abnormal ECG PREVIOUS TRACING : 03/08/2018 22.15 DOCTOR: Annie Raymond Interpretating Date/Time 03/09/2018 22:54:07
--- NOTE | 2018-03-09 23:03 | EKG ---
Date Performed: 03/08/2018 Time Performed: 22:15:16 PTAGE: 72 years EKG: ELECTRONIC VENTRICULAR PACEMAKER ABNORMAL RHYTHM ECG PREVIOUS TRACING : 03/08/2018 16.36 DOCTOR: Annie Raymond Interpretating Date/Time 03/09/2018 22:56:09
--- NOTE | 2018-03-09 23:10 | EKG ---
Date Performed: 03/08/2018 Time Performed: 16:36:05 PTAGE: 72 years EKG: ELECTRONIC VENTRICULAR PACEMAKER ABNORMAL RHYTHM ECG INTERPRETATION BASED ON A DEFAULT AGE OF 40 YEARS PREVIOUS TRACING : 06/14/2016 05.32 DOCTOR: Annie Raymond Interpretating Date/Time 03/09/2018 23:00:04
[2018-03-10] VITALS: BP 144/90; PULSE 68; PULSE 76; RESP 18; TEMP 98.4; O2SAT 97
[2018-03-10 04:00] VITALS: BP 126/57; PULSE 71; PULSE 72; RESP 18; TEMP 98.3; O2SAT 98
[2018-03-10] MEDS: NS + KCL 20 MEQ INJ 1,000 ML IV SCH ×2 (04:32→11:23)
[2018-03-10] MEDS ORDERED: CALCITONIN SALMON INJ 400 UNITS/2 ML VIAL IM ONE (06:00)
[2018-03-10 08:00] VITALS: BP 124/60; PULSE 71; RESP 16; TEMP 98.2; O2SAT 98
[2018-03-10] MEDS: DOCUSATE SODIUM 50 MG/SENNA 8.6 MG TAB PO SCH ×2 (09:07→21:05)
[2018-03-10] MEDS: ALBUTEROL SULFATE 90 MCG/ACT HFA 8 GM INHALER INH SCH ×4 (09:08→21:07)
[2018-03-10] MEDS: ASPIRIN EC 81 MG TABEC PO SCH (09:08)
[2018-03-10] MEDS: HEPARIN SODIUM - SQ 10,000 UNITS/ML VIAL SQ SCH ×2 (09:08→21:06)
[2018-03-10] MEDS: TIOTROPIUM BROMIDE 18 MCG INH INH SCH (09:08)
[2018-03-10] MEDS: PRAVASTATIN SOD 40 MG TAB PO SCH (09:08)
[2018-03-10] MEDS: METOPROLOL TARTRATE 25 MG TAB PO SCH ×2 (09:08→21:05)
[2018-03-10 10:15] LABS: AUTOMATED NEUTROPHIL # 5.4 TH/MM3 (1.8-7.7); BASOPHIL % 0.5 % (0.0-2.0); EOSINOPHIL # 0.1 TH/MM3 (0-0.4); EOSINOPHIL % 1.2 % (0.0-4.0); HEMATOCRIT 41.3 % (35.0-46.0); LYMPH % 20.6 % (9.0-44.0); LYMPHOCYTE # 1.6 TH/MM3 (1.0-4.8); MEAN CELL VOLUME 86.6 FL (80.0-100.0); MEAN CORPUSCULAR HEMOGLOBIN 29.4 PG (27.0-34.0); MEAN CORPUSCULAR HGB CONC 33.9 % (32.0-36.0); MEAN PLATELET VOLUME 9.2 FL (7.0-11.0); MONO % 8.2 % (0.0-8.0); MONOCYTE # 0.6 TH/MM3 (0-0.9); NEUT % 69.5 % (16.0-70.0); PLATELET COUNT 141 TH/MM3 (150-450); RED BLOOD COUNT 4.77 MIL/MM3 (4.00-5.30); WHITE BLOOD COUNT 7.8 TH/MM3 (4.0-11.0)
[2018-03-10 10:46] LABS: ALBUMIN 2.9 GM/DL (3.4-5.0); ALKALINE PHOSPHATASE 43 U/L (45-117); ALT (GPT) 20 U/L (10-53); AST (GOT) 42 U/L (15-37); BICARBONATE 26.6 MEQ/L (21.0-32.0); BLOOD UREA NITROGEN 22 MG/DL (7-18); CALCIUM 9.5 MG/DL (8.5-10.1); CHLORIDE 113 MEQ/L (98-107); GLOMERULAR FILTRATION RATE 99 ML/MIN (>89); GLUCOSE,RANDOM 91 MG/DL (74-106); SODIUM (NA) 148 MEQ/L (136-145); TOTAL BILIRUBIN ADULT 0.3 MG/DL (0.2-1.0); TOTAL PROTEIN 5.8 GM/DL (6.4-8.2)
--- NOTE | 2018-03-10 11:41 | HHI.PR ---
Subjective Remarks Follow-up hypercalcemia/dehydration/elevated troponin I/fall March 09, 2018-patient seen and examined, she is alert and oriented 3, denies any left eye pain. Denies any chest pain or shortness of breath. Calcium down to 13.2. Renal indices improved March 10, 2018-patient seen and examined, stable, calcium down to 9.5. No other issues Objective Vitals Vital Signs Date Time Temp Pulse Resp B/P (MAP) Pulse Ox O2 Delivery O2 Flow Rate FiO2 03/10/18 08:00 98.2 71 16 124/60 (81) 98 03/10/18 04:00 98.3 72 18 126/57 (80) 98 03/10/18 04:00 71 03/10/18 00:00 98.4 76 18 144/90 (108) 97 03/10/18 00:00 68 03/09/18 20:00 67 03/09/18 20:00 98.1 65 18 151/70 (97) 99 03/09/18 16:36 97.7 66 18 136/66 (89) 98 03/09/18 12:00 98.2 60 18 126/62 (83) 98 I/O 03/09/18 03/09/18 03/09/18 03/10/18 03/10/18 03/10/18 07:00 15:00 23:00 07:00 15:00 23:00 Intake Total 550 ml 240 ml 1139 ml Balance 550 ml 240 ml 1139 ml Intake Oral 550 ml 240 ml IV Total 1139 ml # Voids 4 2 1 # Bowel Movements 0 Result Diagram: 03/10/18 0912 03/10/18 0912 Objective Remarks GENERAL: NAD SKIN: Warm and dry. HEAD: Normocephalic. EYES: No scleral icterus. No injection or drainage. Raccoon left eye NECK: Supple, trachea midline. No JVD or lymphadenopathy. CARDIOVASCULAR: Regular rate and rhythm without murmurs, gallops, or rubs. RESPIRATORY: Breath sounds equal bilaterally. No accessory muscle use. GASTROINTESTINAL: Abdomen soft, non-tender, nondistended. MUSCULOSKELETAL: No cyanosis, or edema. BACK: Nontender without obvious deformity. No CVA tenderness. Procedures None A/P Problem List: (1) Hypercalcemia ICD Code: E83.52 - Hypercalcemia Status: Acute (2) Acute kidney failure ICD Code: N17.9 - Acute kidney failure, unspecified Status: Acute (3) Elevated troponin ICD Code: R74.8 - Abnormal levels of other serum enzymes (4) HTN (hypertension) ICD Code: I10 - Hypertension Status: Acute (5) Hypokalemia ICD Code: E87.6 - Hypokalemia Status: Acute (6) Unsteady gait ICD Code: R26.81 - Unsteadiness on feet Status: Acute (7) ETOH abuse ICD Code: F10.10 - Alcohol abuse, uncomplicated Assessment and Plan 72-year-old female with Hypercalcemia-resolved Calcium 9.5 PTH and TSH within normal limits Chest x-ray without any evidence of malignancy s/p calcitonin 100 mg IM 3 Vitamin D 25 and vitamin D 1,25 within normal limits pending calcium 24-hour urine Continue with telemetry monitoring as well as IV fluid hydration Hep-Lock IV fluid Acute renal injury Resolved Elevated troponin I May be secondary to hypercalcemia Appreciate input from cardiology pending 2D echo COPD No current exacerbation Continue with bronchodilators and maintain oxygen saturation above 88% History of alcohol abuse Continue BRENNON smith protocol Hypertension Currently normotensive DVT prophylaxis: Bilateral SCDs Shaji Joseph MD Mar 10, 2018 11:41
[2018-03-10 12:00] VITALS: BP 121/67; PULSE 76; RESP 16; TEMP 98.3; O2SAT 98
--- NOTE | 2018-03-10 13:05 | PD.CARD.PN ---
Subjective Subjective Remarks Denies CP, SOB, dizziness, palpitations. Slept well. Objective Medications Item Value Date Time Aspirin 81 mg 03/09/18 0900 (Ecotrin Ec) DAILY/PO 03/10/18907 Pravastatin Sodium 40 mg 03/09/18 0900 (Pravachol) DAILY/PO 03/10/18 09 Metoprolol 25 mg 03/08/18 2100 Tartrate BID/PO 03/10/18 09 (Lopressor) Heparin Sodium 5,000 units 03/08/18 2000 (Porcine) Q12H/SQ 03/10/18 09 (Heparin Inj) Current Medications Medications (Trade) Dose Ordered Sig/Adrianne Route Start Time Stop Time Status Last Admin (NS Flush) 2 ml UNSCH PRN IVF 03/08/18 16:45 (Tylenol) 650 mg Q4H PRN PO 03/08/18 18:45 (Zofran Odt) 4 mg Q6H PRN PO 03/08/18 18:45 (Heparin Inj) 5,000 units Q12H SQ 03/08/18 20:00 03/10/18 09:08 (Narcan Inj) 0.4 mg UNSCH PRN IV PUSH 03/08/18 18:45 (Karen-Colace) 1 tab BID PO 03/08/18 21:00 03/10/18 09:07 (Milk Of Magnesia Liq) 30 ml Q12H PRN PO 03/08/18 18:45 03/09/18 21:00 (Senokot) 17.2 mg Q12H PRN PO 03/08/18 18:45 (Dulcolax Supp) 10 mg DAILY PRN RECTAL 03/08/18 18:45 (Lactulose Liq) 30 ml DAILY PRN PO 03/08/18 18:45 (Romazicon Inj) 0.2 mg Q1M PRN IV PUSH 03/08/18 18:45 (Ativan) 1 mg Q4H PRN PO 03/08/18 18:45 (Ativan Inj) 1 mg Q4H PRN IV PUSH 03/08/18 18:45 (Ativan) 2 mg Q2H PRN PO 03/08/18 18:45 03/10/18 02:49 (Ativan Inj) 2 mg Q2H PRN IV PUSH 6/17/18 18:45 (Ativan Inj) 2 mg Q1H PRN IV PUSH 03/08/18 18:45 (Ativan Inj) 2 mg Q15M PRN IV PUSH 03/08/18 18:45 (Duoneb Neb) 1 ampule Q4HR NEB PRN NEB 03/08/18 19:00 (Catapres) 0.1 mg Q6H PRN PO 03/08/18 19:00 (Ecotrin Ec) 81 mg DAILY PO 03/09/18 09:00 03/10/18 09:08 (Lopressor) 25 mg BID PO 03/08/18 21:00 03/10/18 09:08 (Pravachol) 40 mg DAILY PO 03/09/18 09:00 03/10/18 09:08 (Proair Hfa Inh) 2 puff QID INH 03/08/18 21:00 03/10/18 12:57 (Spiriva Inh) 18 mcg DAILY INH 03/09/18 09:00 03/10/18 09:08 (Carson 5-325 Mg) 1 tab Q6H PRN PO 03/08/18 22:15 03/08/18 23:30 (Tylenol) 500 mg Q6H PRN PO 03/08/18 22:15 Vital Signs / I&O Vital Signs Date Time Temp Pulse Resp B/P (MAP) Pulse Ox O2 Delivery O2 Flow Rate FiO2 03/10/18 08:00 98.2 71 16 124/60 (81) 98 03/10/18 04:00 98.3 72 18 126/57 (80) 98 03/10/18 04:00 71 03/10/18 00:00 98.4 76 18 144/90 (108) 97 03/10/18 00:00 68 03/09/18 20:00 67 03/09/18 20:00 98.1 65 18 151/70 (97) 99 03/09/18 16:36 97.7 66 18 136/66 (89) 98 I/O 03/09/18 03/09/18 03/09/18 03/10/18 03/10/18 03/10/18 07:00 15:00 23:00 07:00 15:00 23:00 Intake Total 550 ml 240 ml 1139 ml Balance 550 ml 240 ml 1139 ml Intake Oral 550 ml 240 ml IV Total 1139 ml # Voids 4 2 1 # Bowel Movements 0 Physical Exam GENERAL: Well developed, very thin. No acute distress. HEENT: Jugular venous pressure is normal. CHEST: Lungs clear to auscultation bilaterally. Unlabored respiratory effort. CARDIAC: Regular rate and rhythm without S3, S4, or murmur. ABDOMEN: Soft, nontender, no hepatosplenomegaly. Bowel sounds present. EXTREMITIES: No clubbing, cyanosis, or edema. Laboratory Laboratory Tests Test 03/10/18 09:12 White Blood Count 7.8 TH/MM3 Red Blood Count 4.77 MIL/MM3 Hemoglobin 14.0 GM/DL Hematocrit 41.3 % Mean Corpuscular Volume 86.6 FL Mean Corpuscular Hemoglobin 29.4 PG Mean Corpuscular Hemoglobin Concent 33.9 % Red Cell Distribution Width 14.0 % Platelet Count 141 TH/MM3 Mean Platelet Volume 9.2 FL Neutrophils (%) (Auto) 69.5 % Lymphocytes (%) (Auto) 20.6 % Monocytes (%) (Auto) 8.2 % Eosinophils (%) (Auto) 1.2 % Basophils (%) (Auto) 0.5 % Neutrophils # (Auto) 5.4 TH/MM3 Lymphocytes # (Auto) 1.6 TH/MM3 Monocytes # (Auto) 0.6 TH/MM3 Eosinophils # (Auto) 0.1 TH/MM3 Basophils # (Auto) 0.0 TH/MM3 CBC Comment DIFF FINAL Differential Comment Blood Urea Nitrogen 22 MG/DL Creatinine 0.60 MG/DL Random Glucose 91 MG/DL Total Protein 5.8 GM/DL Albumin 2.9 GM/DL Calcium Level 9.5 MG/DL Alkaline Phosphatase 43 U/L Aspartate Amino Transf (AST/SGOT) 42 U/L Alanine Aminotransferase (ALT/SGPT) 20 U/L Total Bilirubin 0.3 MG/DL Sodium Level 148 MEQ/L Potassium Level 4.0 MEQ/L Chloride Level 113 MEQ/L Carbon Dioxide Level 26.6 MEQ/L Anion Gap 8 MEQ/L Estimat Glomerular Filtration Rate 99 ML/MIN Assessment and Plan Problem List: (1) Elevated troponin ICD Codes: R74.8 - Abnormal levels of other serum enzymes Status: Acute Plan: Cardiac status stable. No definite evidence for ACS. Troponin levels only minimally elevated, in the setting of renal insufficiency. Echo pending. Patient had minimally abnormal (questionable distal inferior ischemia) nuclear stress test 2007. REC await echo overall conservative w/u and management continue beta sneha, aspirin (2) Paroxysmal atrial tachycardia ICD Codes: I47.1 - Supraventricular tachycardia Status: Chronic Plan: Pacemaker interrogations shows very rare atrial flutter/tachycardia, last episode 7 days ago, not likely the cause of elevated troponin. Recommend continue beta sneha. Patient asymptomatic. (3) HTN (hypertension) ICD Codes: I10 - Hypertension Status: Chronic Plan: Fluctuating BP's. Continue to monitor. (4) Status post placement of cardiac pacemaker ICD Codes: Z95.0 - Presence of cardiac pacemaker Status: Chronic Code Status full code Discussed Condition With patient Problem Qualifiers (1) HTN (hypertension): Qualified Codes: I10 - Essential (primary) hypertension Kvng Oliveros MD Mar 10, 2018 13:05
--- NOTE | 2018-03-10 14:16 | HHI.FF ---
Face to Face Verification Diagnosis: (1) Hypercalcemia Physical Therapy Order: Evaluate and Treat Home Health Nursing Order: Signs/symptoms of disease process I have seen patient Lynn Luciano on 03/10/18. My clinical findings support the need for the requested home health care services because: Deconditioned w/ increased weakness I certify that my clinical findings support that this patient is homebound because: Unsteady gait/balance Poor cardiac reserve Shaji Joseph MD Mar 10, 2018 14:16
[2018-03-10 16:00] VITALS: BP 114/64; PULSE 70; RESP 14; TEMP 98; O2SAT 97
--- NOTE | 2018-03-10 19:52 | ECHRPT ---
Indication: CARDIOMYOPATHY CONCLUSIONS The left ventricular systolic function is low normal with an estimated ejection fraction of 50%. Septal wall motion abnormality. Wall thickness is normal. Normal left ventricular size. Trace to mild mitral valve regurgitation. There is mild tricuspid valve regurgitation. The estimated pulmonary arterial pressure is 42 mmHg. BP: / HR: Rhythm: MEASUREMENTS (Male / Female) Normal Values Technical Quality:Fair 2D ECHO LV Diastolic Diameter PLAX 4.3 cm 4.2 - 5.9 / 3.9 - 5.3 cm LV Systolic Diameter PLAX 3.3 cm IVS Diastolic Thickness 1.1 cm 0.6 - 1.0 / 0.6 - 0.9 cm LVPW Diastolic Thickness 1.1 cm 0.6 - 1.0 / 0.6 - 0.9 cm LV Relative Wall Thickness 0.5 M-MODE Aortic Root Diameter MM 3.2 cm LA Systolic Diameter MM 3.4 cm LA Ao Ratio MM 1.1 AV Cusp Separation MM 1.4 cm DOPPLER TR Peak Velocity 282.0 cm/s TR Peak Gradient 31.8 mmHg Right Atrial Pressure 10.0 mmHg Pulmonary Artery Systolic Pressu 41.8 mmHg Right Ventricular Systolic Press 41.8 mmHg FINDINGS LEFT VENTRICLE The left ventricular systolic function is low normal with an estimated ejection fraction of 50%. Wall thickness is normal. Normal left ventricular size. RIGHT VENTRICLE Normal right ventricular size and systolic function. LEFT ATRIUM The left atrial size is normal. RIGHT ATRIUM The right atrial size is normal. ATRIAL SEPTUM Normal atrial septal thickness without atrial level shunting by limited color doppler interrogation. AORTA The aortic root and proximal ascending aorta are not well visualized. MITRAL VALVE Trace to mild mitral valve regurgitation. AORTIC VALVE Trileaflet aortic valve. No aortic valve stenosis or regurgitation. TRICUSPID VALVE There is mild tricuspid valve regurgitation. The estimated pulmonary arterial pressure is 41.8 mmHg. PULMONARY VALVE No pulmonary valve regurgitation or stenosis. VESSELS The inferior vena cava is dilated. PERICARDIUM No pericardial effusion. Althea Frank MD, FACC (Electronically Signed) Final Date:10 March 2018 19:51
[2018-03-10 20:00] VITALS: BP 156/67; PULSE 65; PULSE 72; RESP 18; TEMP 98.1; O2SAT 95
[2018-03-11] VITALS: BP 139/60; PULSE 72; RESP 18; TEMP 97.5; O2SAT 98
[2018-03-11 00:05] VITALS: PULSE 70
[2018-03-11 04:00] VITALS: BP 141/65; PULSE 78; RESP 18; TEMP 98.4; O2SAT 95
[2018-03-11 08:00] VITALS: BP 127/89; PULSE 89; PULSE 95; RESP 15; TEMP 98.5; O2SAT 96
[2018-03-11] MEDS: ASPIRIN EC 81 MG TABEC PO SCH (08:35)
[2018-03-11] MEDS: DOCUSATE SODIUM 50 MG/SENNA 8.6 MG TAB PO SCH (08:35)
[2018-03-11] MEDS: HEPARIN SODIUM - SQ 10,000 UNITS/ML VIAL SQ SCH (08:36)
[2018-03-11] MEDS: PRAVASTATIN SOD 40 MG TAB PO SCH (08:36)
[2018-03-11] MEDS: METOPROLOL TARTRATE 25 MG TAB PO SCH (08:36)
[2018-03-11] MEDS: ALBUTEROL SULFATE 90 MCG/ACT HFA 8 GM INHALER INH SCH (08:36)
[2018-03-11] MEDS: TIOTROPIUM BROMIDE 18 MCG INH INH SCH (08:36)
--- NOTE | 2018-03-11 08:42 | PD.CARD.PN ---
Subjective Subjective Remarks Denies CP, SOB, dizziness, palpitations. Anxious to go home. Objective Medications Item Value Date Time Aspirin 81 mg 03/09/18 0900 (Ecotrin Ec) DAILY/PO 03/11/18 0835 Pravastatin Sodium 40 mg 03/09/18 0900 (Pravachol) DAILY/PO 03/11/18 0836 Metoprolol 25 mg 03/08/18 2100 Tartrate BID/PO 03/11/18 0836 (Lopressor) Heparin Sodium 5,000 units 03/08/18 2000 (Porcine) Q12H/SQ 03/11/18 0836 (Heparin Inj) Current Medications Medications (Trade) Dose Ordered Sig/Adrianne Route Start Time Stop Time Status Last Admin (NS Flush) 2 ml UNSCH PRN IVF 03/08/18 16:45 (Tylenol) 650 mg Q4H PRN PO 03/08/18 18:45 (Zofran Odt) 4 mg Q6H PRN PO 03/08/18 18:45 (Heparin Inj) 5,000 units Q12H SQ 03/08/18 20:00 03/11/18 08:36 (Narcan Inj) 0.4 mg UNSCH PRN IV PUSH 03/08/18 18:45 (Karen-Colace) 1 tab BID PO 03/08/18 21:00 03/11/18 08:35 (Milk Of Magnesia Liq) 30 ml Q12H PRN PO 03/08/18 18:45 03/09/18 21:00 (Senokot) 17.2 mg Q12H PRN PO 03/08/18 18:45 (Dulcolax Supp) 10 mg DAILY PRN RECTAL 03/08/18 18:45 (Lactulose Liq) 30 ml DAILY PRN PO 03/08/18 18:45 (Romazicon Inj) 0.2 mg Q1M PRN IV PUSH 03/08/18 18:45 (Ativan) 1 mg Q4H PRN PO 03/08/18 18:45 (Ativan Inj) 1 mg Q4H PRN IV PUSH 03/08/18 18:45 (Ativan) 2 mg Q2H PRN PO 03/08/18 18:45 03/10/18 02:49 (Ativan Inj) 2 mg Q2H PRN IV PUSH 03/08/18 18:45 (Ativan Inj) 2 mg Q1H PRN IV PUSH 03/08/18 18:45 (Ativan Inj) 2 mg Q15M PRN IV PUSH 03/08/18 18:45 (Duoneb Neb) 1 ampule Q4HR NEB PRN NEB 03/08/18 19:00 (Catapres) 0.1 mg Q6H PRN PO 03/08/18 19:00 (Ecotrin Ec) 81 mg DAILY PO 03/09/18 09:00 03/11/18 08:35 (Lopressor) 25 mg BID PO 03/08/18 21:00 03/11/18 08:36 (Pravachol) 40 mg DAILY PO 03/09/18 09:00 03/11/18 08:36 (Proair Hfa Inh) 2 puff QID INH 03/08/18 21:00 03/11/18 08:36 (Spiriva Inh) 18 mcg DAILY INH 03/09/18 09:00 03/11/18 08:36 (Sleepy Eye 5-325 Mg) 1 tab Q6H PRN PO 03/08/18 22:15 03/08/18 23:30 (Tylenol) 500 mg Q6H PRN PO 03/08/18 22:15 Vital Signs / I&O Vital Signs Date Time Temp Pulse Resp B/P (MAP) Pulse Ox O2 Delivery O2 Flow Rate FiO2 03/11/18 04:00 98.4 78 18 141/65 (90) 95 03/11/18 00:05 70 03/11/18 00:00 97.5 72 18 139/60 (86) 98 03/10/18 20:00 72 03/10/18 20:00 98.1 65 18 156/67 (96) 95 03/10/18 16:00 98.0 70 14 114/64 (81) 97 03/10/18 12:00 98.3 76 16 121/67 (85) 98 I/O 03/10/18 03/10/18 03/10/18 03/11/18 03/11/18 03/11/18 07:00 15:00 23:00 07:00 15:00 23:00 Intake Total 1139 ml Output Total 100 ml Balance 1039 ml IV Total 1139 ml Output Urine Total 100 ml # Voids 1 1 1 2 # Bowel Movements 1 Physical Exam GENERAL: Well developed, very thin. No acute distress. HEENT: Jugular venous pressure is normal. CHEST: Lungs clear to auscultation anteriorly. CARDIAC: Regular rate and rhythm without S3, S4, or murmur. ABDOMEN: Soft, nontender, no hepatosplenomegaly. Bowel sounds present. EXTREMITIES: No clubbing, cyanosis, or edema. Laboratory Laboratory Tests Test 03/10/18 09:12 White Blood Count 7.8 TH/MM3 Red Blood Count 4.77 MIL/MM3 Hemoglobin 14.0 GM/DL Hematocrit 41.3 % Mean Corpuscular Volume 86.6 FL Mean Corpuscular Hemoglobin 29.4 PG Mean Corpuscular Hemoglobin Concent 33.9 % Red Cell Distribution Width 14.0 % Platelet Count 141 TH/MM3 Mean Platelet Volume 9.2 FL Neutrophils (%) (Auto) 69.5 % Lymphocytes (%) (Auto) 20.6 % Monocytes (%) (Auto) 8.2 % Eosinophils (%) (Auto) 1.2 % Basophils (%) (Auto) 0.5 % Neutrophils # (Auto) 5.4 TH/MM3 Lymphocytes # (Auto) 1.6 TH/MM3 Monocytes # (Auto) 0.6 TH/MM3 Eosinophils # (Auto) 0.1 TH/MM3 Basophils # (Auto) 0.0 TH/MM3 CBC Comment DIFF FINAL Differential Comment Blood Urea Nitrogen 22 MG/DL Creatinine 0.60 MG/DL Random Glucose 91 MG/DL Total Protein 5.8 GM/DL Albumin 2.9 GM/DL Calcium Level 9.5 MG/DL Alkaline Phosphatase 43 U/L Aspartate Amino Transf (AST/SGOT) 42 U/L Alanine Aminotransferase (ALT/SGPT) 20 U/L Total Bilirubin 0.3 MG/DL Sodium Level 148 MEQ/L Potassium Level 4.0 MEQ/L Chloride Level 113 MEQ/L Carbon Dioxide Level 26.6 MEQ/L Anion Gap 8 MEQ/L Estimat Glomerular Filtration Rate 99 ML/MIN Assessment and Plan Problem List: (1) Elevated troponin ICD Codes: R74.8 - Abnormal levels of other serum enzymes Status: Acute Plan: Cardiac status stable. No definite evidence for ACS. Troponin levels only minimally elevated, in the setting of renal insufficiency. Echo basically normal. REC OK for discharge from cardiac standpoint overall conservative w/u and management continue beta sneha, aspirin (2) Paroxysmal atrial tachycardia ICD Codes: I47.1 - Supraventricular tachycardia Status: Chronic Plan: Pacemaker interrogations shows very rare atrial flutter/tachycardia, last episode 8 days ago, not likely the cause of elevated troponin. Recommend continue beta sneha. Patient asymptomatic. (3) HTN (hypertension) ICD Codes: I10 - Hypertension Status: Chronic Plan: Fluctuating BP's. Continue same. Monitor as outpatient. (4) Status post placement of cardiac pacemaker ICD Codes: Z95.0 - Presence of cardiac pacemaker Status: Chronic Code Status full code Discussed Condition With patient Problem Qualifiers (1) HTN (hypertension): Qualified Codes: I10 - Essential (primary) hypertension Kvng Oliveros MD Mar 11, 2018 08:42
--- NOTE | 2018-03-11 08:57 | HHI.PR ---
Subjective Remarks Follow-up hypercalcemia/dehydration/elevated troponin I/fall March 09, 2018-patient seen and examined, she is alert and oriented 3, denies any left eye pain. Denies any chest pain or shortness of breath. Calcium down to 13.2. Renal indices improved March 10, 2018-patient seen and examined, stable, calcium down to 9.5. No other issues March 11, 2018-patient seen and examined, stable and no complaint of chest pain or shortness of breath. Cleared by cardiology for discharge. The echo within normal limits Objective Vitals Vital Signs Date Time Temp Pulse Resp B/P (MAP) Pulse Ox O2 Delivery O2 Flow Rate FiO2 03/11/18 04:00 98.4 78 18 141/65 (90) 95 03/11/18 00:05 70 03/11/18 00:00 97.5 72 18 139/60 (86) 98 03/10/18 20:00 72 03/10/18 20:00 98.1 65 18 156/67 (96) 95 03/10/18 16:00 98.0 70 14 114/64 (81) 97 03/10/18 12:00 98.3 76 16 121/67 (85) 98 I/O 03/10/18 03/10/18 03/10/18 03/11/18 03/11/18 03/11/18 07:00 15:00 23:00 07:00 15:00 23:00 Intake Total 1139 ml Output Total 100 ml Balance 1039 ml IV Total 1139 ml Output Urine Total 100 ml # Voids 1 1 1 2 # Bowel Movements 1 Result Diagram: 03/10/1812 03/10/18911 Objective Remarks GENERAL: NAD SKIN: Warm and dry. HEAD: Normocephalic. EYES: No scleral icterus. No injection or drainage. Raccoon left eye NECK: Supple, trachea midline. No JVD or lymphadenopathy. CARDIOVASCULAR: Regular rate and rhythm without murmurs, gallops, or rubs. RESPIRATORY: Breath sounds equal bilaterally. No accessory muscle use. GASTROINTESTINAL: Abdomen soft, non-tender, nondistended. MUSCULOSKELETAL: No cyanosis, or edema. BACK: Nontender without obvious deformity. No CVA tenderness. Procedures None A/P Problem List: (1) Hypercalcemia ICD Code: E83.52 - Hypercalcemia Status: Acute (2) Acute kidney failure ICD Code: N17.9 - Acute kidney failure, unspecified Status: Acute (3) Elevated troponin ICD Code: R74.8 - Abnormal levels of other serum enzymes Status: Acute (4) HTN (hypertension) ICD Code: I10 - Hypertension Status: Chronic (5) Hypokalemia ICD Code: E87.6 - Hypokalemia Status: Acute (6) Unsteady gait ICD Code: R26.81 - Unsteadiness on feet Status: Acute (7) ETOH abuse ICD Code: F10.10 - Alcohol abuse, uncomplicated Assessment and Plan 72-year-old female with Hypercalcemia-resolved Calcium 9.5 PTH and TSH within normal limits Chest x-ray without any evidence of malignancy s/p calcitonin 100 mg IM 3 Vitamin D 25 and vitamin D 1,25 within normal limits pending calcium 24-hour urine Continue with telemetry monitoring as well as IV fluid hydration Hep-Lock IV fluid Acute renal injury Resolved Elevated troponin I May be secondary to hypercalcemia Appreciate input from cardiology 2D echo with EF 50% Continue beta-sneha and aspirin COPD No current exacerbation Continue with bronchodilators and maintain oxygen saturation above 88% History of alcohol abuse Continue rally pack, CIWA protocol Hypertension Currently normotensive DVT prophylaxis: Bilateral SCDs Problem Qualifiers (1) HTN (hypertension): Qualified Codes: I10 - Essential (primary) hypertension Shaji Joseph MD Mar 11, 2018 08:57
[2018-03-11] MEDS ORDERED: CALC600T10 PO (09:00)
--- NOTE | 2018-03-11 09:02 | HHI.DS ---
Discharge Summary Admission Date Mar 08, 2018 at 18:31 Discharge Date: Mar 11, 2018 Admitting Diagnosis Severe dehydration/hypercalcemia/syncope (1) Hypercalcemia ICD Code: E83.52 - Hypercalcemia Status: Acute (2) Acute kidney failure ICD Code: N17.9 - Acute kidney failure, unspecified Status: Acute (3) Elevated troponin ICD Code: R74.8 - Abnormal levels of other serum enzymes Status: Acute (4) HTN (hypertension) ICD Code: I10 - Hypertension Status: Chronic (5) Hypokalemia ICD Code: E87.6 - Hypokalemia Status: Acute (6) Unsteady gait ICD Code: R26.81 - Unsteadiness on feet Status: Acute (7) ETOH abuse ICD Code: F10.10 - Alcohol abuse, uncomplicated Procedures None Brief History - From Admission This is a 72-year-old female patient with past medical history which includes COPD not on oxygen nebulizers or inhalers, chronic tobacco use, anxiety/ depression and hypertension. Patient presented to the emergency department today after a fall. Patient reports she was walking her hallway and tripped and fell over her rug. Patient does have ecchymosis on her left eye and reports left shoulder pain. Patient also endorses poor appetite over the past 1 -2 years and weight loss. Patient reports she has lost approximately 90 pounds over the past 2 years and lost approximately 33 pounds over the past 3 months. Patient reports she just has a poor appetite and does not want to eat much. Patient does report she has approximately 2 glasses of bourbon and coke per day and smokes 1-2 packs of cigarettes per day patient denies nausea vomiting diarrhea constipation fevers chills cough congestion chest pain or shortness of breath. CBC/BMP: 03/10/18 0912 03/10/18 0912 Significant Findings Laboratory Tests Test 03/08/18 16:30 03/08/18 22:15 03/09/18 03:52 03/09/18 12:06 Red Blood Count 5.70 MIL/MM3 (4.00-5.30) Hemoglobin 16.9 GM/DL (11.6-15.3) Hematocrit 50.0 % (35.0-46.0) Platelet Count 147 TH/MM3 (150-450) 130 TH/MM3 (150-450) Neutrophils (%) (Auto) 77.7 % (16.0-70.0) 77.4 % (16.0-70.0) Activated Partial Thromboplast Time 21.5 SEC (24.3-30.1) Blood Urea Nitrogen 56 MG/DL (7-18) 43 MG/DL (7-18) Creatinine 1.39 MG/DL (0.50-1.00) Random Glucose 130 MG/DL (74-106) Calcium Level 15.9 MG/DL (8.5-10.1) 14.7 MG/DL (8.5-10.1) 13.2 MG/DL (8.5-10.1) 11.8 MG/DL (8.5-10.1) Aspartate Amino Transf (AST/SGOT) 64 U/L (15-37) 56 U/L (15-37) Sodium Level 134 MEQ/L (136-145) Potassium Level 3.3 MEQ/L (3.5-5.1) Chloride Level 93 MEQ/L (98-107) Carbon Dioxide Level 32.6 MEQ/L (21.0-32.0) Estimat Glomerular Filtration Rate 37 ML/MIN (>89) 72 ML/MIN (>89) Protein Corrected Calcium 15.4 MG/DL (8.5-10.1) Creatine Kinase MB 5.3 NG/ML (0.5-3.6) 8.4 NG/ML (0.5-3.6) 7.8 NG/ML (0.5-3.6) Troponin I 0.16 NG/ML (0.02-0.05) 0.23 NG/ML (0.02-0.05) 0.28 NG/ML (0.02-0.05) Total Creatine Kinase 241 U/L (26-192) 220 U/L (26-192) Total Protein 6.3 GM/DL (6.4-8.2) Vitamin D 1,25-Dihydroxy <8.0 pg/mL (18-78) Test 03/10/18 09:12 Platelet Count 141 TH/MM3 (150-450) Monocytes (%) (Auto) 8.2 % (0.0-8.0) Blood Urea Nitrogen 22 MG/DL (7-18) Total Protein 5.8 GM/DL (6.4-8.2) Albumin 2.9 GM/DL (3.4-5.0) Alkaline Phosphatase 43 U/L (45-117) Aspartate Amino Transf (AST/SGOT) 42 U/L (15-37) Sodium Level 148 MEQ/L (136-145) Chloride Level 113 MEQ/L (98-107) Imaging Last Impressions Head CT 03/08/18 163 Signed Impressions: CONCLUSION: 1. Moderate severity ischemic change in the supratentorial brain, unchanged fr om 2016. 2. No acute findings. Chest X-Ray 03/08/181638 Signed Impressions: CONCLUSION: Hyperaerated lungs. No infiltrates seen. Abdomen/Pelvis CT 03/08/181638 Signed Impressions: CONCLUSION: 1. Stable abdominal aortic aneurysm. Stable colonic diverticulosis and gallsto carmen. 2. 2 mm nonobstructing stone in the extrarenal pelvis on the right side. Other zarco, no acute findings.. Shoulder X-Ray 03/08/18 0000 Signed Impressions: CONCLUSION: No acute fracture seen. Pacemaker in good position. PE at Discharge GENERAL: NAD SKIN: Warm and dry. HEAD: Normocephalic. EYES: No scleral icterus. No injection or drainage. Raccoon left eye NECK: Supple, trachea midline. No JVD or lymphadenopathy. CARDIOVASCULAR: Regular rate and rhythm without murmurs, gallops, or rubs. RESPIRATORY: Breath sounds equal bilaterally. No accessory muscle use. GASTROINTESTINAL: Abdomen soft, non-tender, nondistended. MUSCULOSKELETAL: No cyanosis, or edema. BACK: Nontender without obvious deformity. No CVA tenderness. Hospital Course While in hospital, patient was treated for: Hypercalcemia-resolved Calcium 9.5 PTH and TSH within normal limits Chest x-ray without any evidence of malignancy s/p calcitonin 100 mg IM 3 Vitamin D 25 and vitamin D 1,25 within normal limit Continue with telemetry monitoring as well as IV fluid hydration Hep-Lock IV fluid Acute renal injury Resolved Elevated troponin I May be secondary to hypercalcemia Appreciate input from cardiology 2D echo with EF 50% Treated with beta-sneha and aspirin COPD No current exacerbation Treated with bronchodilators and maintain oxygen saturation above 88% History of alcohol abuse Continue BRENNON smith protocol Hypertension Patient remained normotensive on beta-sneha DVT prophylaxis: Bilateral SCDs Pt Condition on Discharge: Good Discharge Disposition: Disch w/ Home Health Serv Discharge Time: > 30 minutes Discharge Instructions DIET: Follow Instructions for: Heart Healthy Diet Activities you can perform: Regular-No Restrictions Follow up Referrals: Cardiology PCP Follow-up - 1 Week Continued Medications: Alendronate (Alendronate) 5 Mg Tab 5 MG PO DAILY for Osteoprosis Prophylaxis, #90 TAB [address] (Aspirin 81) 81 Mg Tabdr 81 MG PO DAILY, #30 TAB 0 Refills Calcium Carbonate-Cholecalciferol (Calcium + D3) 600-200 Mg-Unit Tab 1 TAB PO BID for Electrolyte Replacement, #60 TAB 3 Refills (This prescription has been renewed) Ipratropium-Albuterol Inh (Combivent Respimat Inh) 20-100 Longterm/Act Aero 1 PUFF INH QID for Asthma Management, #3 INHALER 3 Refills Lisinopril-Hctz (Lisinopril-Hctz) 20-12.5 Mg Tab 1 TAB PO DAILY for Blood Pressure Management, #90 TAB 3 Refills Metoprolol Tartrate (Metoprolol Tartrate) 25 Mg Tab 25 MG PO BID, #180 TAB 3 Refills Mirtazapine (Remeron) 15 Mg Tab 15 MG PO HS for Depression Control, #90 TAB 3 Refills Multiple Vitamins W/ Minerals (Multivitamin Adults) 1 Tab 1 TAB PO DAILY for Nutritional Supplement, #31 TAB 0 Refills Potassium Chloride ER (Potassium Chloride ER) 10 Meq Cap 20 MEQ PO DAILY for Electrolyte Replacement, #180 CAP 1 Refill Pravastatin (Pravastatin) 40 Mg Tab 40 MG PO DAILY for Cholesterol Management, #90 TAB 3 Refills [Areds-2] () Shaji Joseph MD Mar 11, 2018 09:02
== END 2018-03-11 12:02 | disposition home health service (06) | DRG 683 ==
LOC: NEPE 16:19 → NEDA 18:31 → N05B 19:44
PROVIDERS: ADMIT Hospitalist; ATTEND Hospitalist
DX: N17.9 Acute kidney failure, unspecified (principal); Z68.1 Body mass index [BMI] 19.9 or less, adult; J44.9 Chronic obstructive pulmonary disease, unspecified; R63.0 Anorexia; I47.1 Supraventricular tachycardia; E83.52 Hypercalcemia; E86.0 Dehydration; E78.5 Hyperlipidemia, unspecified; R63.4 Abnormal weight loss; S00.12XA Contusion of left eyelid and periocular area, initial encounter; S40.212A Abrasion of left shoulder, initial encounter; I10 Essential (primary) hypertension; R74.8 Abnormal levels of other serum enzymes; E87.6 Hypokalemia; R26.81 Unsteadiness on feet; F10.10 Alcohol abuse, uncomplicated; F17.210 Nicotine dependence, cigarettes, uncomplicated; F32.9 Major depressive disorder, single episode, unspecified; F41.9 Anxiety disorder, unspecified; W01.0XXA Fall on same level from slipping, tripping and stumbling without subsequent striking against object, initial encounter; Z95.0 Presence of cardiac pacemaker
CPT/HCPCS: 70450; 71045; 73030; 74176; 80053; 82306; 82310; 82550; 82552; 82652; 83036; 83735; 83970; 84443; 84484; 85025; 85610; 85730; 93005; 93306; 96360; J0630; J1644; J3480; J7030